=== PATIENT | female | born 1965 | race Caucasian/White ===

== ENCOUNTER 2017-03-15 21:20 | Emergency (ER) | payer OTHER ==
[~2017-03-15] VITALS: Ht 162.6 cm; Wt 59.5 kg
[2017-03-15 21:20] VITALS: BP 146/88
[2017-03-15] MEDS ORDERED: SYNT25TA PO (21:30)
[2017-03-15] MEDS ORDERED: birth control (21:30)
[2017-03-15] MEDS ORDERED: MORPHINE 4 MG/ML 1ML SYRINGE IV ONE (22:45)
[2017-03-15] MEDS ORDERED: ONDANSETRON 4MG/2ML VIAL (J2405) IV ONE (22:45)
== END 2017-03-15 23:15 | disposition left against medical advice (07) ==
LOC: M ED 21:20
DX: R10.9 Unspecified abdominal pain (principal); E05.90 Thyrotoxicosis, unspecified without thyrotoxic crisis or storm; Z79.3 Long term (current) use of hormonal contraceptives; Z91.013 Allergy to seafood; E73.8 Other lactose intolerance; Z53.21 Procedure and treatment not carried out due to patient leaving prior to being seen by health care provider; Z79.899 Other long term (current) drug therapy